=== PATIENT | female | born 1960 | race Caucasian/White ===

== ENCOUNTER → 2024-03-21 10:45 | Outpatient (REF) | payer OTHER, SELFPAY | LOC: HWRAD 10:45 | PROVIDERS: ATTENDING PHYSICIAN Surgery; FAMILY PHYSICIAN Family Medicine | DX: N20.0 Calculus of kidney (principal) | CPT/HCPCS: 76775 ==

== ENCOUNTER → 2024-06-15 11:01 | Outpatient (REF) | payer OTHER, SELFPAY | LOC: HWWDC 11:01 | PROVIDERS: ATTENDING PHYSICIAN Obstetrics & Gynecology; FAMILY PHYSICIAN Family Medicine | DX: Z12.31 Encounter for screening mammogram for malignant neoplasm of breast (principal) | CPT/HCPCS: 77063; 77067 ==